=== PATIENT | male | born 1950 | race Caucasian/White ===

== ENCOUNTER 2020-10-14 07:15 | Outpatient (REF) | payer MEDICARE, SELFPAY ==
[2020-10-14 08:01] LABS: MANUAL DIFF FLAG NO
[2020-10-14 08:04] LABS: Basophils Percent Auto 0.5 % (0-2); Eosinophils Absolute Auto 0.2 X10*3/uL (0.0-0.4); Eosinophils Percent Auto 3.6 % (0-4); Hemoglobin 14.9 g/dl (14.0-18.0); Imm Gran Abs Auto 0.02 X10*3/uL (0.00-0.03); Imm Gran Pct Auto 0.3 % (0.0-0.4); Lymphocytes Percent Auto 32.5 % (20-40); Mean Corpuscular HGB Conc 33.1 g/dl (31.0-36.0); Mean Corpuscular Hemoglobin 30.2 pg (27.0-33.0); Mean Corpuscular Volume 91.3 fL (80-98); Mean Platelet Volume 9.2 fL (9.4-12.4); Monocytes Absolute Auto 0.4 X10*3/uL (0.1-1.2); Monocytes Percent Auto 6.6 % (2-11); Neutrophils Absolute Auto 3.4 X10*3/uL (2.0-8.3); Neutrophils Percent Auto 56.5 % (45-73); Platelet Count 210 X10*3/uL (160-400); Red Blood Count 4.93 X10*6/uL (4.60-5.80); Red Cell Distribution Width 12.4 % (11.0-16.0)
[2020-10-14 08:24] LABS: Alanine Aminotransferase 34 U/L (0-40); Albumin Level 4.4 g/dL (3.5-5.0); Alkaline Phosphatase 85 U/L (39-117); Anion Gap 13 (12-20); Aspartate Amino Transferase 24 U/L (5-37); Bilirubin Total 0.4 mg/dL (0.0-1.0); Blood Urea Nitrogen 18 mg/dL (9-16); Calcium 9.3 mg/dL (8.4-10.2); Carbon Dioxide 32 mmol/L (22-29); Chloride 99 mmol/L (96-108); Cholesterol 264 mg/dL; Estimated Glomerular Filt Rate > 60; Glucose Fasting 160 mg/dL (60-99); HDL Cholesterol 51 mg/dL; LDL Cholesterol Calculated 183 mg/dl; Potassium 4.5 mmol/l (3.3-5.1); Sodium 139 mmol/L (135-145); Total Protein 6.9 g/dL (6.5-8.0); Triglycerides 153 mg/dL
[2020-10-14 08:47] LABS: Vitamin D 25-OH Total 87.3 ng/mL (>30)
== END 2020-10-14 07:16 | disposition home or self-care (01) ==
LOC: HO.LAB 07:15
PROVIDERS: PCP Internal Medicine Medical Oncology; Visit Provider Internal Medicine Medical Oncology
DX: E78.5 Hyperlipidemia, unspecified (principal); E66.3 Overweight
CPT/HCPCS: 36415; 80053; 80061; 82306; 85025

== ENCOUNTER 2021-01-09 06:31 | Outpatient (REF) | payer MEDICARE, SELFPAY ==
[2021-01-09 07:01] LABS: MANUAL DIFF FLAG NO
[2021-01-09 07:07] LABS: Basophils Percent Auto 0.5 % (0-2); Eosinophils Absolute Auto 0.2 X10*3/uL (0.0-0.4); Eosinophils Percent Auto 3.3 % (0-4); Hematocrit 43.8 % (42-52); Hemoglobin 14.6 g/dl (14.0-18.0); Imm Gran Abs Auto 0.01 X10*3/uL (0.00-0.03); Imm Gran Pct Auto 0.2 % (0.0-0.4); Lymphocytes Absolute Auto 2.3 X10*3/uL (1.2-4.9); Lymphocytes Percent Auto 37.8 % (20-40); Mean Corpuscular HGB Conc 33.3 g/dl (31.0-36.0); Mean Corpuscular Hemoglobin 30.9 pg (27.0-33.0); Mean Corpuscular Volume 92.8 fL (80-98); Mean Platelet Volume 9.3 fL (9.4-12.4); Monocytes Absolute Auto 0.3 X10*3/uL (0.1-1.2); Monocytes Percent Auto 5.4 % (2-11); Neutrophils Absolute Auto 3.2 X10*3/uL (2.0-8.3); Neutrophils Percent Auto 52.8 % (45-73); Platelet Count 196 X10*3/uL (160-400); Red Blood Count 4.72 X10*6/uL (4.60-5.80); Red Cell Distribution Width 12.9 % (11.0-16.0); White Blood Count 6.1 X10*3/uL (4.8-10.8)
[2021-01-09 07:15] LABS: Estimated Average Glucose 131 mg/dL; Hemoglobin A1c % 6.2 %
[2021-01-09 07:23] LABS: Alanine Aminotransferase 24 U/L (0-40); Albumin Level 4.4 g/dL (3.5-5.0); Alkaline Phosphatase 78 U/L (39-117); Anion Gap 14 (12-20); Aspartate Amino Transferase 23 U/L (5-37); Bilirubin Total 0.7 mg/dL (0.0-1.0); Blood Urea Nitrogen 21 mg/dL (9-16); Calcium 9.3 mg/dL (8.4-10.2); Carbon Dioxide 30 mmol/L (22-29); Chloride 101 mmol/L (96-108); Cholesterol 242 mg/dL; Estimated Glomerular Filt Rate > 60; Glucose Fasting 127 mg/dL (60-99); HDL Cholesterol 55 mg/dL; LDL Cholesterol Calculated 157 mg/dl; Potassium 4.6 mmol/L (3.3-5.1); Sodium 140 mmol/L (135-145); Total Protein 6.8 g/dL (6.5-8.0); Triglycerides 153 mg/dL
[2021-01-09 07:54] LABS: Creatinine Urine 140.49 mg/dL; Microalbumin Urine < 5.0 mg/L
== END 2021-01-09 06:32 | disposition home or self-care (01) ==
LOC: HO.LAB 06:31
PROVIDERS: PCP Internal Medicine Medical Oncology; Visit Provider Internal Medicine Medical Oncology
DX: E78.5 Hyperlipidemia, unspecified (principal)
CPT/HCPCS: 36415; 80053; 80061; 82043; 83036; 85025

== ENCOUNTER 2021-07-09 06:38 | Outpatient (REF) | payer MEDICARE, SELFPAY ==
[2021-07-09 08:01] LABS: MANUAL DIFF FLAG NO
[2021-07-09 08:07] LABS: Basophils Percent Auto 0.4 % (0-2); Eosinophils Absolute Auto 0.3 X10*3/uL (0.0-0.4); Hematocrit 41.8 % (42-52); Hemoglobin 13.8 g/dl (14.0-18.0); Imm Gran Abs Auto 0.01 X10*3/uL (0.00-0.03); Imm Gran Pct Auto 0.1 % (0.0-0.4); Lymphocytes Absolute Auto 2.1 X10*3/uL (1.2-4.9); Lymphocytes Percent Auto 30.6 % (20-40); Mean Corpuscular Hemoglobin 30.9 pg (27.0-33.0); Mean Corpuscular Volume 93.7 fL (80-98); Mean Platelet Volume 9.5 fL (9.4-12.4); Monocytes Absolute Auto 0.4 X10*3/uL (0.1-1.2); Monocytes Percent Auto 5.8 % (2-11); Neutrophils Percent Auto 59.1 % (45-73); Platelet Count 205 X10*3/uL (160-400); Red Blood Count 4.46 X10*6/uL (4.60-5.80); Red Cell Distribution Width 12.8 % (11.0-16.0); White Blood Count 6.8 X10*3/uL (4.8-10.8)
[2021-07-09 08:35] LABS: Alanine Aminotransferase 26 U/L (0-40); Albumin Level 4.3 g/dL (3.5-5.0); Alkaline Phosphatase 73 U/L (39-117); Anion Gap 14 (12-20); Aspartate Amino Transferase 29 U/L (5-37); Bilirubin Total 0.6 mg/dL (0.0-1.0); Blood Urea Nitrogen 21 mg/dL (9-16); Calcium 9.2 mg/dL (8.4-10.2); Carbon Dioxide 28 mmol/L (22-29); Chloride 102 mmol/L (96-108); Cholesterol 235 mg/dL; Estimated Glomerular Filt Rate > 60; Glucose Fasting 129 mg/dL (60-99); HDL Cholesterol 55 mg/dL; LDL Cholesterol Calculated 151 mg/dl; Potassium 4.5 mmol/L (3.3-5.1); Sodium 139 mmol/L (135-145); Total Protein 6.6 g/dL (6.5-8.0); Triglycerides 145 mg/dL
[2021-07-09 09:06] LABS: Estimated Average Glucose 131 mg/dL; Hemoglobin A1C 152.6947 umol/L; Hemoglobin A1c % 6.2 %
== END 2021-07-09 06:39 | disposition home or self-care (01) ==
LOC: HO.LAB 06:38
PROVIDERS: PCP Internal Medicine Medical Oncology; Visit Provider Internal Medicine Medical Oncology
DX: E78.5 Hyperlipidemia, unspecified (principal); E66.3 Overweight
CPT/HCPCS: 36415; 80053; 80061; 83036; 85025

== ENCOUNTER 2022-01-11 06:16 | Outpatient (REF) | payer MEDICARE, SELFPAY ==
[2022-01-11 06:56] LABS: Hematocrit 41.2 % (42.0-52.0); Hemoglobin 14.3 g/dl (14.0-18.0); Mean Corpuscular HGB Conc 34.7 g/dl (31.0-36.0); Mean Corpuscular Hemoglobin 32.6 pg (27.0-33.0); Mean Corpuscular Volume 93.8 fL (80.0-98.0); Mean Platelet Volume 9.5 fL (9.4-12.4); Platelet Count 192 X10*3/uL (160-400); Red Blood Count 4.39 X10*6/uL (4.60-5.80); Red Cell Distribution Width 12.7 % (11.0-16.0); White Blood Count 6.8 X10*3/uL (4.8-10.8)
[2022-01-11 07:09] LABS: Alanine Aminotransferase 45 U/L (0-40); Albumin Level 4.5 g/dL (3.5-5.0); Alkaline Phosphatase 86 U/L (39-117); Anion Gap 13 (12-20); Aspartate Amino Transferase 31 U/L (5-37); Bilirubin Total 0.5 mg/dL (0.0-1.0); Blood Urea Nitrogen 21 mg/dL (9-16); Calcium 9.6 mg/dL (8.4-10.2); Carbon Dioxide 31 mmol/L (22-29); Chloride 99 mmol/L (96-108); Cholesterol 293 mg/dL; Estimated Glomerular Filt Rate > 60; Glucose Fasting 183 mg/dL (60-99); HDL Cholesterol 52 mg/dL; LDL Cholesterol Calculated 198 mg/dl; Potassium 4.6 mmol/L (3.3-5.1); Sodium 138 mmol/L (135-145); Total Protein 7.2 g/dL (6.5-8.0); Triglycerides 217 mg/dL
[2022-01-11 07:26] LABS: Estimated Average Glucose 154 mg/dL
[2022-01-11 08:18] LABS: Microalbumin Urine < 5.0 mg/L
== END 2022-01-11 06:17 | disposition home or self-care (01) ==
LOC: HO.LAB 06:16
PROVIDERS: PCP Internal Medicine Medical Oncology; Visit Provider Internal Medicine Medical Oncology
DX: E78.5 Hyperlipidemia, unspecified (principal); N40.2 Nodular prostate without lower urinary tract symptoms; E11.39 Type 2 diabetes mellitus with other diabetic ophthalmic complication
CPT/HCPCS: 36415; 80053; 80061; 82043; 83036; 85027

== ENCOUNTER 2022-03-13 06:03 | Outpatient (REF) | payer MEDICARE, SELFPAY ==
[2022-03-13 06:29] LABS: MANUAL DIFF FLAG NO
[2022-03-13 07:16] LABS: Basophils Percent Auto 0.5 % (0-2); Eosinophils Absolute Auto 0.3 X10*3/uL (0.0-0.4); Eosinophils Percent Auto 3.6 % (0-4); Hematocrit 40.9 % (42.0-52.0); Hemoglobin 13.4 g/dl (14.0-18.0); Imm Gran Abs Auto 0.02 X10*3/uL (0.00-0.03); Imm Gran Pct Auto 0.3 % (0.0-0.4); Lymphocytes Absolute Auto 2.1 X10*3/uL (1.2-4.9); Lymphocytes Percent Auto 28.7 % (20-40); Mean Corpuscular HGB Conc 32.8 g/dl (31.0-36.0); Mean Corpuscular Hemoglobin 30.3 pg (27.0-33.0); Mean Corpuscular Volume 92.5 fL (80.0-98.0); Mean Platelet Volume 9.4 fL (9.4-12.4); Monocytes Absolute Auto 0.4 X10*3/uL (0.1-1.2); Monocytes Percent Auto 5.1 % (2-11); Neutrophils Absolute Auto 4.5 x10*3/uL (2.0-8.3); Neutrophils Percent Auto 61.8 % (45-73); Platelet Count 234 X10*3/uL (160-400); Red Blood Count 4.42 X10*6/uL (4.60-5.80); Red Cell Distribution Width 12.7 % (11.0-16.0); White Blood Count 7.3 X10*3/uL (4.8-10.8)
[2022-03-13 07:44] LABS: Estimated Average Glucose 154 mg/dL
[2022-03-13 08:34] LABS: Alanine Aminotransferase 28 U/L (0-40); Albumin Level 4.2 g/dL (3.5-5.0); Alkaline Phosphatase 82 U/L (39-117); Anion Gap 14 (12-20); Aspartate Amino Transferase 22 U/L (5-37); Bilirubin Total 0.3 mg/dL (0.0-1.0); Blood Urea Nitrogen 17 mg/dL (9-16); Calcium 9.3 mg/dL (8.4-10.2); Carbon Dioxide 28 mmol/L (22-29); Chloride 101 mmol/L (96-108); Cholesterol 281 mg/dL; Estimated Glomerular Filt Rate > 60; Glucose Fasting 168 mg/dL (60-99); HDL Cholesterol 49 mg/dL; LDL Cholesterol Calculated 203 mg/dl; Potassium 4.6 mmol/L (3.3-5.1); Sodium 138 mmol/L (135-145); Total Protein 6.6 g/dL (6.5-8.0); Triglycerides 149 mg/dL
== END 2022-03-13 06:04 | disposition home or self-care (01) ==
LOC: HO.LAB 06:03
PROVIDERS: PCP Internal Medicine Medical Oncology; Visit Provider Internal Medicine Medical Oncology
DX: E78.5 Hyperlipidemia, unspecified (principal); E11.39 Type 2 diabetes mellitus with other diabetic ophthalmic complication; N40.2 Nodular prostate without lower urinary tract symptoms
CPT/HCPCS: 36415; 80053; 80061; 83036; 85025

== ENCOUNTER 2022-07-20 07:04 | Outpatient (REF) | payer MEDICARE, SELFPAY ==
[2022-07-20 07:26] LABS: MANUAL DIFF FLAG NO
[2022-07-20 08:25] LABS: Basophils Absolute Auto 0.1 X10*3/uL (0.0-0.2); Basophils Percent Auto 0.7 % (0-2); Eosinophils Absolute Auto 0.3 X10*3/uL (0.0-0.4); Hematocrit 44.4 % (42.0-52.0); Hemoglobin 14.6 g/dl (14.0-18.0); Imm Gran Abs Auto 0.03 X10*3/uL (0.00-0.03); Imm Gran Pct Auto 0.4 % (0.0-0.4); Lymphocytes Absolute Auto 2.1 X10*3/uL (1.2-4.9); Lymphocytes Percent Auto 29.5 % (20-40); Mean Corpuscular HGB Conc 32.9 g/dl (31.0-36.0); Mean Corpuscular Hemoglobin 30.9 pg (27.0-33.0); Mean Corpuscular Volume 94.1 fL (80.0-98.0); Mean Platelet Volume 9.5 fL (9.4-12.4); Monocytes Absolute Auto 0.4 X10*3/uL (0.1-1.2); Monocytes Percent Auto 5.5 % (2-11); Neutrophils Absolute Auto 4.2 x10*3/uL (2.0-8.3); Neutrophils Percent Auto 59.9 % (45-73); Platelet Count 225 X10*3/uL (160-400); Red Blood Count 4.72 X10*6/uL (4.60-5.80); Red Cell Distribution Width 12.4 % (11.0-16.0); White Blood Count 7.1 X10*3/uL (4.8-10.8)
[2022-07-20 09:21] LABS: Estimated Average Glucose 146 mg/dL; Hemoglobin A1c % 6.7 %
[2022-07-20 09:26] LABS: Alanine Aminotransferase 30 U/L (0-40); Albumin Level 4.4 g/dL (3.5-5.0); Alkaline Phosphatase 92 U/L (39-117); Anion Gap 19 (12-20); Aspartate Amino Transferase 22 U/L (5-37); Bilirubin Total 0.5 mg/dL (0.0-1.0); Blood Urea Nitrogen 21 mg/dL (9-16); Calcium 9.4 mg/dL (8.4-10.2); Carbon Dioxide 26 mmol/L (22-29); Chloride 101 mmol/L (96-108); Cholesterol 291 mg/dL; Estimated Glomerular Filt Rate > 60; Glucose Random 156 mg/dL (60-115); HDL Cholesterol 52 mg/dL; LDL Cholesterol Calculated 194 mg/dl; Potassium 4.8 mmol/L (3.3-5.1); Sodium 141 mmol/L (135-145); Total Protein 6.9 g/dL (6.5-8.0); Triglycerides 229 mg/dL
== END 2022-07-20 07:05 | disposition home or self-care (01) ==
LOC: HO.LAB 07:04
PROVIDERS: Visit Provider Internal Medicine Medical Oncology
DX: E78.5 Hyperlipidemia, unspecified (principal); N40.2 Nodular prostate without lower urinary tract symptoms
CPT/HCPCS: 36415; 80053; 80061; 83036; 85025

== ENCOUNTER 2023-01-18 06:50 | Outpatient (REF) | payer MEDICARE, SELFPAY ==
[2023-01-18 07:05] LABS: MANUAL DIFF FLAG NO
[2023-01-18 07:33] LABS: Basophils Absolute Auto 0.1 X10*3/uL (0.0-0.2); Basophils Percent Auto 0.7 % (0-2); Eosinophils Absolute Auto 0.4 X10*3/uL (0.0-0.4); Eosinophils Percent Auto 4.6 % (0-4); Hematocrit 43.5 % (42.0-52.0); Hemoglobin 14.4 g/dl (14.0-18.0); Imm Gran Abs Auto 0.03 X10*3/uL (0.00-0.03); Imm Gran Pct Auto 0.4 % (0.0-0.4); Lymphocytes Absolute Auto 2.5 X10*3/uL (1.2-4.9); Lymphocytes Percent Auto 30.7 % (20-40); Mean Corpuscular HGB Conc 33.1 g/dl (31.0-36.0); Mean Corpuscular Hemoglobin 30.4 pg (27.0-33.0); Mean Corpuscular Volume 91.8 fL (80.0-98.0); Mean Platelet Volume 9.1 fL (9.4-12.4); Monocytes Absolute Auto 0.5 X10*3/uL (0.1-1.2); Monocytes Percent Auto 6.1 % (2-11); Neutrophils Absolute Auto 4.7 x10*3/uL (2.0-8.3); Neutrophils Percent Auto 57.5 % (45-73); Platelet Count 221 X10*3/uL (160-400); Red Blood Count 4.74 X10*6/uL (4.60-5.80); Red Cell Distribution Width 12.4 % (11.0-16.0); White Blood Count 8.2 X10*3/uL (4.8-10.8)
[2023-01-18 09:05] LABS: Alanine Aminotransferase 28 U/L (0-40); Albumin Level 4.3 g/dL (3.5-5.0); Alkaline Phosphatase 86 U/L (39-117); Anion Gap 15 (12-20); Aspartate Amino Transferase 22 U/L (5-37); Bilirubin Total 0.4 mg/dL (0.0-1.0); Blood Urea Nitrogen 22 mg/dL (9-16); Calcium 9.2 mg/dL (8.4-10.2); Carbon Dioxide 27 mmol/L (22-29); Chloride 102 mmol/L (96-108); Cholesterol 287 mg/dL; Estimated Glomerular Filt Rate > 60; Glucose Random 178 mg/dL (60-115); HDL Cholesterol 52 mg/dL; LDL Cholesterol Calculated 201 mg/dl; Potassium 4.8 mmol/L (3.3-5.1); Sodium 139 mmol/L (135-145); Total Protein 6.6 g/dL (6.5-8.0); Triglycerides 172 mg/dL
== END 2023-01-18 06:51 | disposition home or self-care (01) ==
LOC: HO.LAB 06:50
PROVIDERS: PCP Internal Medicine Medical Oncology; Visit Provider Internal Medicine Medical Oncology
DX: Z00.00 Encounter for general adult medical examination without abnormal findings (principal); E78.5 Hyperlipidemia, unspecified
CPT/HCPCS: 36415; 80053; 80061; 85025

== ENCOUNTER 2023-04-14 06:34 | Outpatient (REF) | payer MEDICARE, SELFPAY | END 2023-04-14 06:35 | disposition home or self-care (01) | LOC: HO.LAB 06:34 | PROVIDERS: PCP Internal Medicine Medical Oncology; Visit Provider Internal Medicine Medical Oncology | DX: Z12.5 Encounter for screening for malignant neoplasm of prostate (principal); E78.5 Hyperlipidemia, unspecified; E11.39 Type 2 diabetes mellitus with other diabetic ophthalmic complication; E66.3 Overweight; N40.2 Nodular prostate without lower urinary tract symptoms | CPT/HCPCS: 36415; 80053; 80061; 82043; 83036; 84153; 85025 ==

== ENCOUNTER 2023-07-22 06:31 | Outpatient (REF) | payer MEDICARE, SELFPAY | END 2023-07-22 06:32 | disposition home or self-care (01) | LOC: HO.LAB 06:31 | PROVIDERS: PCP Internal Medicine Medical Oncology; Visit Provider Internal Medicine Medical Oncology | DX: E78.5 Hyperlipidemia, unspecified (principal); E11.39 Type 2 diabetes mellitus with other diabetic ophthalmic complication; E66.3 Overweight | CPT/HCPCS: 36415; 80053; 80061; 83036; 85025 ==

== ENCOUNTER 2023-10-17 07:48 | Outpatient (REF) | payer MEDICARE, SELFPAY | END 2023-10-17 07:49 | disposition home or self-care (01) | LOC: HO.LAB 07:48 | PROVIDERS: PCP Internal Medicine Medical Oncology; Visit Provider Internal Medicine Medical Oncology | DX: Z00.00 Encounter for general adult medical examination without abnormal findings (principal); E11.39 Type 2 diabetes mellitus with other diabetic ophthalmic complication; N52.9 Male erectile dysfunction, unspecified; E66.3 Overweight; Z12.5 Encounter for screening for malignant neoplasm of prostate | CPT/HCPCS: 36415; 80053; 80061; 83036; 84153; 85025 ==

== ENCOUNTER 2024-03-01 06:05 | Outpatient (REF) | payer MEDICARE, SELFPAY ==
[2024-03-01 06:22] LABS: MANUAL DIFF FLAG NO
[2024-03-01 07:43] LABS: Basophils Percent Auto 0.6 % (0-2); Eosinophils Absolute Auto 0.3 X10*3/uL (0.0-0.4); Hematocrit 40.7 % (42.0-52.0); Hemoglobin 13.7 g/dl (14.0-18.0); Imm Gran Abs Auto 0.01 X10*3/uL (0.00-0.03); Imm Gran Pct Auto 0.1 % (0.0-0.4); Lymphocytes Absolute Auto 2.2 X10*3/uL (1.2-4.9); Lymphocytes Percent Auto 32.4 % (20-40); Mean Corpuscular HGB Conc 33.7 g/dl (31.0-36.0); Mean Corpuscular Hemoglobin 30.7 pg (27.0-33.0); Mean Corpuscular Volume 91.3 fL (80.0-98.0); Mean Platelet Volume 9.8 fL (9.4-12.4); Monocytes Absolute Auto 0.4 X10*3/uL (0.1-1.2); Monocytes Percent Auto 5.7 % (2-11); Neutrophils Absolute Auto 3.8 x10*3/uL (2.0-8.3); Neutrophils Percent Auto 56.2 % (45-73); Platelet Count 245 X10*3/uL (160-400); Red Blood Count 4.46 X10*6/uL (4.60-5.80); Red Cell Distribution Width 12.8 % (11.0-16.0); White Blood Count 6.8 X10*3/uL (4.8-10.8)
[2024-03-01 07:50] LABS: Estimated Average Glucose 183 mg/dL
[2024-03-01 08:16] LABS: Creatinine Urine 109.67 mg/dL; Microalbum/Creatinine Ratio Ur 5.4 ug/mg cr (<30)
[2024-03-01 08:19] LABS: Alanine Aminotransferase 23 U/L (0-40); Albumin Level 4.2 g/dL (3.5-5.0); Alkaline Phosphatase 82 U/L (39-117); Anion Gap 17 (12-20); Aspartate Amino Transferase 20 U/L (5-37); Bilirubin Total 0.3 mg/dL (0.0-1.0); Blood Urea Nitrogen 24 mg/dL (9-16); Calcium 9.5 mg/dL (8.4-10.2); Carbon Dioxide 26 mmol/L (22-29); Chloride 102 mmol/L (96-108); Cholesterol 257 mg/dL (<200); Estimated Glomerular Filt Rate 60; Glucose Fasting 184 mg/dL (60-99); HDL Cholesterol 47 mg/dL (>40); LDL Cholesterol Calculated 179 mg/dL (<100); Potassium 4.5 mmol/L (3.3-5.1); Sodium 140 mmol/L (135-145); Total Protein 6.9 g/dL (6.5-8.0); Triglycerides 158 mg/dL (<150)
[2024-03-01 08:35] LABS: Prostate Specific Antigen 2.15 ng/mL (<0.05-4.0)
== END 2024-03-01 06:06 | disposition home or self-care (01) ==
LOC: HO.LAB 06:05
PROVIDERS: PCP Internal Medicine Medical Oncology; Visit Provider Internal Medicine Medical Oncology
DX: E78.5 Hyperlipidemia, unspecified (principal); Z12.5 Encounter for screening for malignant neoplasm of prostate; E11.39 Type 2 diabetes mellitus with other diabetic ophthalmic complication; N40.2 Nodular prostate without lower urinary tract symptoms; E66.3 Overweight
CPT/HCPCS: 36415; 80053; 80061; 82043; 82570; 83036; 84153; 85025

== ENCOUNTER 2024-07-24 07:36 | Outpatient (REF) | payer MEDICARE, SELFPAY ==
[2024-07-24 08:05] LABS: MANUAL DIFF FLAG NO
[2024-07-24 08:54] LABS: Estimated Average Glucose 174 mg/dL; Hemoglobin A1C 202.7752 umol/L; Hemoglobin A1c % 7.7 % (<6.0); Total Hemoglobin (HGBA1C) 3329.4281 umol/L
[2024-07-24 09:01] LABS: Basophils Absolute Auto 0.1 X10*3/uL (0.0-0.2); Basophils Percent Auto 0.6 % (0-2); Eosinophils Absolute Auto 0.4 X10*3/uL (0.0-0.4); Eosinophils Percent Auto 4.8 % (0-4); Hematocrit 41.6 % (42.0-52.0); Hemoglobin 13.7 g/dl (14.0-18.0); Imm Gran Abs Auto 0.02 X10*3/uL (0.00-0.03); Imm Gran Pct Auto 0.3 % (0.0-0.4); Lymphocytes Absolute Auto 2.3 X10*3/uL (1.2-4.9); Lymphocytes Percent Auto 29.5 % (20-40); Mean Corpuscular HGB Conc 32.9 g/dl (31.0-36.0); Mean Corpuscular Hemoglobin 29.9 pg (27.0-33.0); Mean Corpuscular Volume 90.8 fL (80.0-98.0); Mean Platelet Volume 9.1 fL (9.4-12.4); Monocytes Absolute Auto 0.5 X10*3/uL (0.1-1.2); Neutrophils Absolute Auto 4.5 x10*3/uL (2.0-8.3); Neutrophils Percent Auto 58.8 % (45-73); Platelet Count 259 X10*3/uL (160-400); Red Blood Count 4.58 X10*6/uL (4.60-5.80); Red Cell Distribution Width 12.6 % (11.0-16.0); White Blood Count 7.7 X10*3/uL (4.8-10.8)
[2024-07-24 09:30] LABS: Alanine Aminotransferase 25 U/L (0-40); Albumin Level 4.2 g/dL (3.5-5.0); Alkaline Phosphatase 102 U/L (39-117); Anion Gap 14 (12-20); Aspartate Amino Transferase 20 U/L (5-37); Bilirubin Total 0.5 mg/dL (0.0-1.0); Blood Urea Nitrogen 16 mg/dL (9-16); Calcium 9.9 mg/dL (8.4-10.2); Carbon Dioxide 28 mmol/L (22-29); Chloride 102 mmol/L (96-108); Cholesterol 249 mg/dL (<200); Estimated Glomerular Filt Rate > 60; Glucose Fasting 171 mg/dL (60-99); HDL Cholesterol 46 mg/dL (>40); LDL Cholesterol Calculated 168 mg/dL (<100); Potassium 4.5 mmol/L (3.3-5.1); Sodium 139 mmol/L (135-145); Total Protein 7.1 g/dL (6.5-8.0); Triglycerides 176 mg/dL (<150)
[2024-07-24 12:00] LABS: Creatinine Urine 79.45 mg/dL; Microalbumin Urine < 5.0 mg/L
== END 2024-07-24 07:37 | disposition home or self-care (01) ==
LOC: HO.LAB 07:36
PROVIDERS: PCP Internal Medicine Medical Oncology; Visit Provider Internal Medicine Medical Oncology
DX: E11.39 Type 2 diabetes mellitus with other diabetic ophthalmic complication (principal); E78.5 Hyperlipidemia, unspecified; E66.3 Overweight
CPT/HCPCS: 36415; 80053; 80061; 82043; 82570; 83036; 85025

== ENCOUNTER 2024-11-26 06:52 | Outpatient (REF) | payer MEDICARE, SELFPAY ==
[2024-11-26 07:14] LABS: MANUAL DIFF FLAG NO
[2024-11-26 07:50] LABS: Estimated Average Glucose 200 mg/dL; Hemoglobin A1C 241.4741 umol/L; Hemoglobin A1c % 8.6 % (<6.0); Total Hemoglobin (HGBA1C) 3433.4082 umol/L
[2024-11-26 07:51] LABS: Basophils Absolute Auto 0.1 X10*3/uL (0.0-0.2); Basophils Percent Auto 0.6 % (0-2); Eosinophils Absolute Auto 0.3 X10*3/uL (0.0-0.4); Eosinophils Percent Auto 3.8 % (0-4); Hematocrit 40.8 % (42.0-52.0); Imm Gran Abs Auto 0.03 X10*3/uL (0.00-0.03); Imm Gran Pct Auto 0.4 % (0.0-0.4); Lymphocytes Absolute Auto 2.2 X10*3/uL (1.2-4.9); Lymphocytes Percent Auto 26.1 % (20-40); Mean Corpuscular HGB Conc 31.9 g/dl (31.0-36.0); Mean Corpuscular Hemoglobin 27.8 pg (27.0-33.0); Mean Corpuscular Volume 87.4 fL (80.0-98.0); Mean Platelet Volume 9.1 fL (9.4-12.4); Monocytes Absolute Auto 0.6 X10*3/uL (0.1-1.2); Monocytes Percent Auto 6.6 % (2-11); Neutrophils Absolute Auto 5.3 x10*3/uL (2.0-8.3); Neutrophils Percent Auto 62.5 % (45-73); Platelet Count 288 X10*3/uL (160-400); Red Blood Count 4.67 X10*6/uL (4.60-5.80); Red Cell Distribution Width 13.3 % (11.0-16.0); White Blood Count 8.5 X10*3/uL (4.8-10.8)
[2024-11-26 08:12] LABS: Alanine Aminotransferase 20 U/L (0-40); Albumin Level 4.1 g/dL (3.5-5.0); Alkaline Phosphatase 132 U/L (39-117); Anion Gap 14 (12-20); Aspartate Amino Transferase 19 U/L (5-37); Bilirubin Total 0.3 mg/dL (0.0-1.0); Blood Urea Nitrogen 17 mg/dL (9-16); Calcium 9.6 mg/dL (8.4-10.2); Carbon Dioxide 27 mmol/L (22-29); Chloride 98 mmol/L (96-108); Cholesterol 216 mg/dL (<200); Estimated Glomerular Filt Rate > 60; Glucose Fasting 196 mg/dL (60-99); HDL Cholesterol 44 mg/dL (>40); LDL Cholesterol Calculated 145 mg/dL (<100); Potassium 4.3 mmol/L (3.3-5.1); Sodium 135 mmol/L (135-145); Total Protein 7.6 g/dL (6.5-8.0); Triglycerides 138 mg/dL (<150)
== END 2024-11-26 06:53 | disposition home or self-care (01) ==
LOC: HO.LAB 06:52
PROVIDERS: PCP Internal Medicine Medical Oncology; Visit Provider Internal Medicine Medical Oncology
DX: Z00.00 Encounter for general adult medical examination without abnormal findings (principal); E11.39 Type 2 diabetes mellitus with other diabetic ophthalmic complication
CPT/HCPCS: 36415; 80053; 80061; 83036; 85025

== ENCOUNTER 2025-02-25 06:36 | Outpatient (REF) | payer MEDICARE, SELFPAY ==
--- OUTSIDE RECORDS SUMMARY | 2025-02-25 06:39 | XMS_ITS | Patient Health Record ---
Author Organization Kavon Drake III, MD Address [address] [place] [address] Care Team Providers Care Automation Control Technician Name Role Phone Kavon Drake Primary Care Provider [phone] Allergies Allergen (clinical drug ingredient) Drug/Non Drug Allergy documented on EMR Reaction Allergy Type Onset Date Status No Known Drug Allergy Unknown Drug Allergy Active Results Component Value Reference Range Notes Complete Blood Count Auto Di ff Reviewed date:03/06/2024 04:44:06 AM Interpretation: Performing Lab:[facility], [address] [place] [address] Notes/Report: White Blood Count 6.8 4.8-10.8 X10*3/uL Red Blood Count 4.46 4.60-5.80 X10*6/uL Hemoglobin 13.7 14.0-18.0 g/dl Hematocrit 40.7 42.0-52.0 % Mean Corpuscular Volume 91.3 80.0-98.0 fL Mean Corpuscular Hemoglobin 30.7 27.0-33.0 pg Mean Corpuscular HGB Conc 33.7 31.0-36.0 g/dl Red Cell Distribution Width 12.8 11.0-16.0 % Platelet Count 245 160-400 X10*3/uL Mean Platelet Volume 9.8 9.4-12.4 fL Neutrophils Percent Auto 56.2 45-73 % Imm Gran Pct Auto 0.1 0.0-0.4 % Lymphocytes Percent Auto 32.4 20-40 % Monocytes Percent Auto 5.7 2-11 % Eosinophils Percent Auto 5.0 0-4 % Basophils Percent Auto 0.6 0-2 % NRBC Pct Auto 0.0 0.0-0.2 /100WBC Neutrophils Absolute Auto 3.8 2.0-8.3 x10*3/u L Imm Gran Abs Auto 0.01 0.00-0.03 X10*3/uL Lymphocytes Absolute Auto 2.2 1.2-4.9 X10*3/u L Monocytes Absolute Auto 0.4 0.1-1.2 X10*3/uL Eosinophils Absolute Auto 0.3 0.0-0.4 X10*3/u L Basophils Absolute Auto 0.0 0.0-0.2 X10*3/uL NRBC Abs Auto 0.000 0.0-0.012 X10*3/uL Comprehensive [place]. Panel Fa st Reviewed date:03/06/2024 04:44:06 AM Interpretation: Performing Lab:[address] [phone] Notes/Report: Sodium 140 135-145 mmol/L Potassium 4.5 3.3-5.1 mmol/L Chloride 102 96-108 mmol/L Carbon Dioxide 26 22-29 mmol/L Anion Gap 17 12-20 Blood Urea Nitrogen 24 9-16 mg/dL Creatinine 1.20 0.5-1.4 mg/dL Estimated Glomerular Filt Rate 60 NOTE: For -[place] individuals, multiply the result by 1.210. Chronic Kidney Disease: Estimated GFR < 60 mL/min/1.73m2 Severe Kidney Disease: Estimated GFR < 15 mL/min/1.73m2 Glucose Fasting 184 60-99 mg/dL A fasting glucose of 126 mg/dl or greater on more than one occasion is considered diagnostic of diabetes. Calcium 9.5 8.4-10.2 mg/dL Bilirubin Total 0.3 0.0-1.0 mg/dL Aspartate Amino Transferase 20 5-37 U/L Alanine Aminotransferase 23 0-40 U/L Total Protein 6.9 6.5-8.0 g/dL Albumin Level 4.2 3.5-5.0 g/dL Alkaline Phosphatase 82 39-117 U/L Lipid Panel Reviewed date:03/06/2024 04:44:06 AM Interpretation: Performing Lab:[address] [address] Notes/Report: Triglycerides 158 <150 mg/dL Desirable Triglyceride: less than 150 mg/dL Borderline High Triglyceride 150-199 mg/dL High Triglyceride: 200-499 mg/dL Very High Triglyceride: greater than or equal to 5OO mg/dL Cholesterol 257 <200 mg/dL Desirable Cholesterol: less than 200 mg/dL Borderline High Cholesterol: 200-239 mg/dL High Cholesterol: greater than 239 mg/dL LDL Cholesterol Calculated 179 <100 mg/dL Desirable LDL: less than 100 mg/dL Near Optimal/Above Optimal LDL: 110-129 mg/dL Borderline High LDL: 130-159 mg/dL High LDL: 160-189 mg/dL Very High LDL: greater than or equal to 190 mg/dL HDL Cholesterol 47 >40 mg/dL Desirable HDL: greater than 40 mg/dL Note: This HDL assay may give artificially low results in patients with liver disease. Prostate Specific Antigen Reviewed date:03/06/2024 04:44:06 AM Interpretation: Performing Lab:[address] [address] Notes/Report: Prostate Specific Antigen 2.15 <0.05-4.0 ng/mL PSA methodology: Pizarro Alinity i Chemiluminescent Microparticle Immunoassay (CMIA) Microalbumin, Random Reviewed date:03/06/2024 04:44:06 AM Interpretation: Performing Lab:[facility], [address] [place] [phone] Notes/Report: Creatinine Urine 109.67 Microalbumin Urine 6.0 Microalbum/Creatinine Ratio Ur 5.4 <30 ug/mg cr Albumin/Creatinine Ratio Reference Ranges: Normal: < 30 ug/mg creatinine Microalbuminuria: 30 - 300 ug/mg creatinine Clinical Albuminuria: > 300 ug/mg creatinine Hemoglobin A1c Reviewed date:03/06/2024 04:44:06 AM Interpretation: Performing Lab:[address] [address] Notes/Report: Hemoglobin A1c % 8.0 <6.0 % Hemoglobin A1C Reference Range Adults: 4.8 - 6.0 % Non diabetic: < 6.0 % Goal: < 7.0 % Additional Action Suggested: > 8.0 % Note: Hemoglobin A1c results are invalid for patients with abnormal amounts of HbF. Blood transfusions may impact the HbA1c concentration in the patient sample. Estimated Average Glucose 183 eAG = Estimated average glucose which is %A1C expressed as average glucose, using the formula of the M4P-Wctmgku Average Glucose study (ADAG), Diabetes Care, Vol.31,#8, May. 2007 Complete Blood Count Auto Di ff Reviewed date:07/26/2024 07:02:27 AM Interpretation: Performing Lab:[facility], [address] [place] [phone] Notes/Report: White Blood Count 7.7 4.8-10.8 X10*3/uL Red Blood Count 4.58 4.60-5.80 X10*6/uL Hemoglobin 13.7 14.0-18.0 g/dl Hematocrit 41.6 42.0-52.0 % Mean Corpuscular Volume 90.8 80.0-98.0 fL Mean Corpuscular Hemoglobin 29.9 27.0-33.0 pg Mean Corpuscular HGB Conc 32.9 31.0-36.0 g/dl Red Cell Distribution Width 12.6 11.0-16.0 % Platelet Count 259 160-400 X10*3/uL Mean Platelet Volume 9.1 9.4-12.4 fL Neutrophils Percent Auto 58.8 45-73 % Imm Gran Pct Auto 0.3 0.0-0.4 % Lymphocytes Percent Auto 29.5 20-40 % Monocytes Percent Auto 6.0 2-11 % Eosinophils Percent Auto 4.8 0-4 % Basophils Percent Auto 0.6 0-2 % NRBC Pct Auto 0.0 0.0-0.2 /100WBC Neutrophils Absolute Auto 4.5 2.0-8.3 x10*3/u L Imm Gran Abs Auto 0.02 0.00-0.03 X10*3/uL Lymphocytes Absolute Auto 2.3 1.2-4.9 X10*3/u L Monocytes Absolute Auto 0.5 0.1-1.2 X10*3/uL Eosinophils Absolute Auto 0.4 0.0-0.4 X10*3/u L Basophils Absolute Auto 0.1 0.0-0.2 X10*3/uL NRBC Abs Auto 0.000 0.0-0.012 X10*3/uL Comprehensive [place]. Panel Fa st Reviewed date:07/26/2024 07:02:27 AM Interpretation: Performing Lab:[facility], [address] [place] [phone] Notes/Report: Sodium 139 135-145 mmol/L Potassium 4.5 3.3-5.1 mmol/L Chloride 102 96-108 mmol/L Carbon Dioxide 28 22-29 mmol/L Anion Gap 14 12-20 Blood Urea Nitrogen 16 9-16 mg/dL Creatinine 1.05 0.5-1.4 mg/dL Estimated Glomerular Filt Rate > 60 NOTE: For -[place] individuals, multiply the result by 1.210. Chronic Kidney Disease: Estimated GFR < 60 mL/min/1.73m2 Severe Kidney Disease: Estimated GFR < 15 mL/min/1.73m2 Glucose Fasting 171 60-99 mg/dL A fasting glucose of 126 mg/dl or greater on more than one occasion is considered diagnostic of diabetes. Calcium 9.9 8.4-10.2 mg/dL Bilirubin Total 0.5 0.0-1.0 mg/dL Aspartate Amino Transferase 20 5-37 U/L Alanine Aminotransferase 25 0-40 U/L Total Protein 7.1 6.5-8.0 g/dL Albumin Level 4.2 3.5-5.0 g/dL Alkaline Phosphatase 102 39-117 U/L Lipid Panel Reviewed date:07/26/2024 07:02:27 AM Interpretation: Performing Lab:[facility], [address] [place] [phone] Notes/Report: Triglycerides 176 <150 mg/dL Desirable Triglyceride: less than 150 mg/dL Borderline High Triglyceride 150-199 mg/dL High Triglyceride: 200-499 mg/dL Very High Triglyceride: greater than or equal to 5OO mg/dL Cholesterol 249 <200 mg/dL Desirable Cholesterol: less than 200 mg/dL Borderline High Cholesterol: 200-239 mg/dL High Cholesterol: greater than 239 mg/dL LDL Cholesterol Calculated 168 <100 mg/dL Desirable LDL: less than 100 mg/dL Near Optimal/Above Optimal LDL: 110-129 mg/dL Borderline High LDL: 130-159 mg/dL High LDL: 160-189 mg/dL Very High LDL: greater than or equal to 190 mg/dL HDL Cholesterol 46 >40 mg/dL Desirable HDL: greater than 40 mg/dL Note: This HDL assay may give artificially low results in patients with liver disease. Microalbumin, Random Reviewed date:07/26/2024 07:02:27 AM Interpretation: Performing Lab:[facility], [address] [place] [phone] Notes/Report: Creatinine Urine 79.45 Microalbumin Urine < 5.0 Microalbum/Creatinine Ratio Ur TNP <30 ug/mg cr Unable to calculate albumin/creatinine ratio due to low microalbumin or creatinine result. Hemoglobin A1c Reviewed date:07/26/2024 07:02:27 AM Interpretation: Performing Lab:[facility], [address] [place] [phone] Notes/Report: Hemoglobin A1c % 7.7 <6.0 % Hemoglobin A1C Reference Range Adults: 4.8 - 6.0 % Non diabetic: < 6.0 % Goal: < 7.0 % Additional Action Suggested: > 8.0 % Note: Hemoglobin A1c results are invalid for patients with abnormal amounts of HbF. Blood transfusions may impact the HbA1c concentration in the patient sample. Estimated Average Glucose 174 eAG = Estimated average glucose which is %A1C expressed as average glucose, using the formula of the P1C-Opmlmds Average Glucose study (ADAG), Diabetes Care, Vol.31,#8, May. 2007 Complete Blood Count Auto Di ff Reviewed date:11/30/2024 03:26:57 PM Interpretation: Performing Lab:[facility], [address] [place] [phone] Notes/Report: White Blood Count 8.5 4.8-10.8 X10*3/uL Red Blood Count 4.67 4.60-5.80 X10*6/uL Hemoglobin 13.0 14.0-18.0 g/dl Hematocrit 40.8 42.0-52.0 % Mean Corpuscular Volume 87.4 80.0-98.0 fL Mean Corpuscular Hemoglobin 27.8 27.0-33.0 pg Mean Corpuscular HGB Conc 31.9 31.0-36.0 g/dl Red Cell Distribution Width 13.3 11.0-16.0 % Platelet Count 288 160-400 X10*3/uL Mean Platelet Volume 9.1 9.4-12.4 fL Neutrophils Percent Auto 62.5 45-73 % Imm Gran Pct Auto 0.4 0.0-0.4 % Lymphocytes Percent Auto 26.1 20-40 % Monocytes Percent Auto 6.6 2-11 % Eosinophils Percent Auto 3.8 0-4 % Basophils Percent Auto 0.6 0-2 % NRBC Pct Auto 0.0 0.0-0.2 /100WBC Neutrophils Absolute Auto 5.3 2.0-8.3 x10*3/u L Imm Gran Abs Auto 0.03 0.00-0.03 X10*3/uL Lymphocytes Absolute Auto 2.2 1.2-4.9 X10*3/u L Monocytes Absolute Auto 0.6 0.1-1.2 X10*3/uL Eosinophils Absolute Auto 0.3 0.0-0.4 X10*3/u L Basophils Absolute Auto 0.1 0.0-0.2 X10*3/uL NRBC Abs Auto 0.000 0.0-0.012 X10*3/uL Hemoglobin A1c Reviewed date:11/30/2024 03:26:57 PM Interpretation: Performing Lab:[facility], [address] [place] [phone] Notes/Report: Hemoglobin A1c % 8.6 <6.0 % Hemoglobin A1C Reference Range Adults: 4.8 - 6.0 % Non diabetic: < 6.0 % Goal: < 7.0 % Additional Action Suggested: > 8.0 % Note: Hemoglobin A1c results are invalid for patients with abnormal amounts of HbF. Blood transfusions may impact the HbA1c concentration in the patient sample. Estimated Average Glucose 200 eAG = Estimated average glucose which is %A1C expressed as average glucose, using the formula of the S7Y-Ehwommo Average Glucose study (ADAG), Diabetes Care, Vol.31,#8, May. 2007 Reason For Referral No Information Medications Medication SIG (Take, Route, Fr equency, Duration) Notes Start Date End Date Status glipiZIDE ER 5 MG 1 tablet Orally Once a day for 30 days 11/30/2024 Active metFORMIN HCl 1000 MG TAKE ONE TABLET BY MOUTH TWICE A DAY Active Niacin 500 MG 1 tablet with food O rally Once a day Active Fish Oil 1200 MG 1 capsule Orally Once a day Active Hydrocortisone 1 % 1 application Classer ally Twice a day 07/22/2023 Active Immunizations Vaccine Route Administration Date Status Comme nts Influenza no Preserv 3 and > Unknown 08/05/2019 Administered PCV13 Unknown 08/05/2019 Administered Influenza no Preserv 3 and > Unknown 07/28/2020 Administered COVID- 19 Vaccine Unknown 10/14/2021 Administered COVID- 19 Vaccine Unknown 01/17/2021 Administered Influenza, quad IM Intramuscular 07/24/2022 Administered Social History Tobacco Use: Social History Observation Description Date Details (start date - stop date) Never Smoker NA - NA Sex Assigned At : Social History Observation Description Sex Assigned At Male Tobacco Use/Smoking Question Answer Notes Patient is a nonsmoker Additional Findings: Tobacco Non-User Aggressive non-smoker Tobacco Control (Standard) Question Answer Notes Tobacco use: Nonsmoker Additional Findings: Tobacco non-user Aggressive nonsmoker AUDIT-C (Standard) Question Answer Notes Did you have a drink containing alcohol in the p ast year? No Points 0 Interpretation Negative Problems Problem Type SNOMED Code ICD Code Onset Dates Problem Status W/U Status Risk Notes Problem 614918867 Overweight (E66.3) Active confirmed His weight is stable and he remains slightly overweight. We made a plan to lose weight at a rate of one half of a pound per week to a diet restricted in fat calories and sodium combined with regular physical activity. Problem 407317309 Erectile dysfunction, unspecified erectile dysfunction type (N52.9) Active confirmed This problem has been addressed and resolved with medication. Problem 479739791 Statin intolerance (Z78.9) Active confirmed I have offered she is other statins, such as fluvastatin. He was not interested in discussed the medication. He does not wish to take ezetimbe or colestiole. He says he is going to try and reduce his lipids to the previous values by diet and exercise. He is aware of the increased risk of stroke and heart attack and elevated lipid levels. Problem Hyperlipidemia, unspecified hyperlipidemia type (E78.5) Active confirmed Comprehensive blood work including a fasting lipid profile has been ordered. No change in his medication was made today. 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 This is likely due to celebrations during the holidays. We discussed his statin intolerance and hyperglycemia today at length. We reviewed his diet and his nutrition. We made a plan to lose weight at a rate of one half of a pound per week. We reviewed the diabetic diet detail.I have added 5 mg of glipizide to his regimen. Problem [id number] Prostate nodule (N40.2) Active confirmed He is going to see urology to have this evaluated.He declined a rectal examination today. Problem 19433646 Bilateral inguinal hernia with obstruction and without gangrene, recurrence not specified (K40.00) Active confirmed These will be observed as he is asymptomatic. Vital Signs Heart Rate 82 /min 11/30/2024 Temperature 97.5 degrees Fahrenheit 11/30/2024 Blood pressure diastolic 64 mm Hg 11/30/2024 Height 68 in 11/30/2024 Blood pressure systolic 134 mm Hg 11/30/2024 Weight 175 lbs 11/30/2024 BMI 26.61 kg/m2 11/30/2024 Encounters Encounter Location Date Provider Diagnosis Kavon Drake III, MD [address] [place] [address] [place] [phone] 03/02/2024 Kavon Drake Hyperlipidemia, unspecified hyperlipidemia type E78.5 ; Non insulin dependent diabetes mellitus with ophthalmic complication E11.39 and Overweight E66.3 Kavon Drake III, MD [address] [place] [address] [address] [place] [address] 07/27/2024 Kavon Drake Hyperlipidemia, unspecified hyperlipidemia type E78.5 ; Non insulin dependent diabetes mellitus with ophthalmic complication E11.39 ; Statin intolerance Z78.9 ; Bilateral inguinal hernia with obstruction and without gangrene, recurrence not specified K40.00 ; Prostate nodule N40.2 ; Overweight E66.3 and Erectile dysfunction, unspecified erectile dysfunction type N52.9 Kavon Drake III, MD [address] [place] [address] [place] [address] 11/30/2024 Kavon Drake Hyperlipidemia, unspecified hyperlipidemia type E78.5 ; Non insulin dependent diabetes mellitus with ophthalmic complication E11.39 ; Overweight E66.3 ; Prostate nodule N40.2 and Bilateral inguinal hernia with obstruction and without gangrene, recurrence not specified K40.00 Assessments Encounter Date Diagnosis (ICD Code) Assessment Notes Treat ment Notes Treatment Clinical Notes 03/02/2024 Hyperlipidemia, unspecified hyperlipidemia type (ICD-10 - E78.5) He is intolerant of statin medications. His total cholesterol has continued to decrease, now being 269. We have discussed aggressive weight loss, diet, nutrition. We made a plan to lose weight at a rate of one half of a pound per week.He does not wish to take additional medication at this time 03/02/2024 Non insulin dependen t diabetes mellitus with ophthalmic complication (ICD-10 - E11.39) His current fasting glucose is 184. His hemoglobin A1c has increased to 8.0. We have discussed his diabetic diet and exercise level. We made a plan to lose weight at a rate of one half of a pound per week through a diet restricted in fat calories and sodium. 07/27/2024 Hyperlipidemia, unspecified hyperlipidemia type (ICD-10 - E78.5) He is intolerant of statin medications. His total cholesterol has continued to decrease. We have discussed aggressive weight loss, diet, nutrition. We made a plan to lose weight at a rate of one half of a pound per week.He does not wish to take additional medication at this time 07/27/2024 Non insulin dependen t diabetes mellitus with ophthalmic complication (ICD-10 - E11.39) His hemoglobin A1c has decreased from 8.0-7.7. He will continue to lose weight and consume a healthy Mediterranean diet. No change was needed in his medications. 11/30/2024 Hyperlipidemia, unspecified hyperlipidemia type (ICD-10 - E78.5) Comprehensive blood work including a fasting lipid profile has been ordered. No change in his medication was made today. 11/30/2024 Non insulin dependen t diabetes mellitus with ophthalmic complication (ICD-10 - E11.39) His hemoglobin A1c has increased. This is likely due to celebrations during the holidays. We discussed his statin intolerance and hyperglycemia today at length. We reviewed his diet and his nutrition. We made a plan to lose weight at a rate of one half of a pound per week. We reviewed the diabetic diet detail.I have added 5 mg of glipizide to his regimen. 03/02/2024 Overweight (ICD-10 - E66.3) He weighs 178 pounds with a body mass index of 27. We discussed the control of diabetes through diet and exercise. We reviewed his diabetic diet. We reviewed his blood pressure and cholesterol lowering diet. We made a plan to lose weight at a rate of one half of a pound per week. 07/27/2024 Statin intolerance (ICD-10 - Z78.9) I have offered she is other statins, such as fluvastatin. He was not interested in discussed the medication. He does not wish to take ezetimbe or colestiole. He says he is going to try and reduce his lipids to the previous values by diet and exercise. He is aware of the increased risk of stroke and heart attack and elevated lipid levels. 11/30/2024 Overweight (ICD-10 - E66.3) His weight is stable and he remains slightly overweight. We made a plan to lose weight at a rate of one half of a pound per week to a diet restricted in fat calories and sodium combined with regular physical activity. 07/27/2024 Bilateral inguinal hernia with obstruction and without gangrene, recurrence not specified (ICD-10 - K40.00) These will be observed as he is asymptomatic. 11/30/2024 Prostate nodule (ICD-10 - N40.2) He is going to see urology to have this evaluated.He declined a rectal examination today. 07/27/2024 Prostate nodule (ICD-10 - N40.2) He is going to see urology to have this evaluated.He declined a rectal examination today. 11/30/2024 Bilateral inguinal hernia with obstruction and without gangrene, recurrence not specified (ICD-10 - K40.00) These will be observed as he is asymptomatic. 07/27/2024 Overweight (ICD-10 - E66.3) He weighs 178 pounds with a body mass index of 27. We discussed the control of diabetes through diet and exercise. We reviewed his diabetic diet. We reviewed his blood pressure and cholesterol lowering diet. We made a plan to lose weight at a rate of one half of a pound per week. 07/27/2024 Erectile dysfunction , unspecified erectile dysfunction type (ICD-10 - N52.9) This problem has been addressed and resolved with medication. Plan Of Treatment Pending Test Test Name Order Date PROFILE, FASTING (COMPREHENSIVE METABOLI C) 11/30/2024 PROFILE, FASTING (COMPREHENSIVE METABOLI C) 10/21/2023 PROFILE, FASTING (COMPREHENSIVE METABOLI C) 07/27/2024 PROFILE, FASTING (COMPREHENSIVE METABOLI C) 03/02/2024 HEMOGLOBIN A1C (GLYCOHEMOGLOBIN) 024 PSA, TOTAL 10/21/2023 MICROALBUMIN, RANDOM 10/21/2023 MICROALBUMIN, RANDOM 03/02/2024 CBC w DIFF 10/21/2023 CBC w DIFF 03/02/2024 CBC WITH AUTO DIFF 11/30/2024 CBC WITH AUTO DIFF 07/27/2024 COLOGUARD 07/22/2023 Lipid Panel 10/21/2023 Lipid Panel 03/02/2024 Lipid Panel 11/30/2024 Lipid Panel 07/27/2024 Hemoglobin A1c 07/27/2024 Hemoglobin A1c 10/21/2023 Hemoglobin A1c 11/30/2024 Next Appt Details Provider Name:Kavon Verdugorne, 03/01/2025 02:45:00 PM, [address] [place] [address] [address], [place], [address], Provider Name:Kavon Drake, 07/28/2025 10:00:00 AM, [address] [place] [address] [address], [place], [address], Insurance Providers Payer Name Payer Address Payer Phone Subscriber Number Group Number Insured Name Patient Relationship to Insured Coverage Start Date Coverage End Date [employer] [address] [place], [place] [phone] [id number] Norberto Lima Self - patient is the insured MEDICARE NGS [address] [place] [address] [id number] Norberto Lima Self - patient is the insured Medical (General) History Medical History History ICD Code mixed hyperlipidemia adult-onset diabetes mellitus hemorrhoids statin intolerance history of bilateral inguinal hernias, r epaired left inguinal hernia revised 2014 history of prostate nodule from Dr. Sanjiv zaidi's records ED overweight Significant hemorrhoids Patient has a history of ramesh betes, high cholesterol, prostate issues, hernias, and hemorrhoids. His diabetes and cholesterol are not well-controlled, but he is managing them with medication and diet. He has been maintaining his weight and has lost 2 lbs since October. His hemorrhoids have been bothering him recently. Surgical History Surgery Date(Month/Year) appendectomy tonsilectomy bilateral inguinal herniorrhaphies 1970 revision left inguinal herni orrhaphy, Dr. Ferreira, [facility] 2013 No history Hospitalization History Reason Date(Month/Year) No history
--- OUTSIDE RECORDS SUMMARY | 2025-02-25 06:39 | XMS_ITS | Patient Health Record ---
[facility] Organization [facility] krysta Kyler Address [address] [place] [address] Care Team Providers Care Sausage Canner Name Role Phone Kavon Drake MD Primary Care Provider UnavailSherman Rivas Unavailable [phone] Allergies No Known Allergies Reason For Referral No Information Medications Medication SIG (Take, Route, Frequency, Duration) Notes Start Date End Date Status valACYclovir HCl Not -Taking metFORMIN HCl 850 MG 1 tablet with a braulio l Orally Once a day for 30 day(s) Active Immunizations Vaccine Route Administration Date Status Comme nts COVID-19 [employer]/Shawn Unknown 01/17/2021 A dministered Influenza Unknown 07/13/2021 Administered Social History Tobacco Use: Social History Observation Description Date Details (start date - stop date) Never Smoker NA - NA Tobacco Use/Smoking Question Answer Notes Are you a: nonsmoker Alcohol Screen Question Answer Notes Did you have a drink containing alcohol in the p ast year? No Points 0 Interpretation Negative Tobacco use other than smoking: Question Answer Notes Are you an other tobacco user? No Problems Problem Type SNOMED Code ICD Code Onset Dates Problem Status W/U Status Risk Notes Problem Polyneuropathy due to type 2 diabetes mellitus (585627920) Type 2 diabetes mellitus with diabetic polyneuropathy (E11.42) Active confirmed Problem Polyneuropathy due to diabetes mellitus type I (027469459) Type 1 diabetes mellitus with diabetic polyneuropathy (E10.42) Active confirmed Plan Of Treatment Pending Test Test Name Order Date [id number], 1-14 09/14/2021 Insurance Providers Payer Name Payer Address Payer Phone Subscriber Number Group Number Insured Name Patient Relationship to Insured Coverage Start Date Coverage End Date [facility] 65 Medicare Preferred [address] [place] [address] [id number] Norberto Lima Self - patient is the insured Medical (General) History Medical History History ICD Code Diabetic Broken bones Warts Measles Mumps Chicken pox Surgical History Surgery Date(Month/Year)
--- OUTSIDE RECORDS SUMMARY | 2025-02-25 06:39 | XMS_ITS ---
Author Organization Kavon Drake III, MD Address [address] [place] [id number] Care Team Providers Care Funeral Service Manager Name Role Phone Kavon Drake Primary Care Provider [phone] Allergies Allergen (clinical drug ingredient) Drug/Non Drug Allergy documented on EMR Reaction Allergy Type Onset Date Status No Known Drug Allergy Unknown Drug Allergy Active REASON FOR VISIT Annual Exam Medications Medication SIG (Take, Route, Fr equency, Duration) Notes Start Date End Date Status metFORMIN HCl 1000 MG 1 tablet orally twice a day 01/14/2022 Active Hydrocortisone 1 % 1 application Farm Equipment Technician ally Twice a day 07/22/2023 Active Niacin 500 MG 1 tablet with food O rally Once a day Active Fish Oil 1200 MG 1 capsule Orally Once a day Active Social History Tobacco Use: Social History Observation [...] ast year? 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 07/27/2024 Statin intolerance (ICD-10 - Z78.9) I [...] and heart attack and elevated lipid levels. 07/27/2024 Bilateral inguinal hernia with obstruction and without gangrene, recurrence not specified (ICD-10 - K40.00) These will be observed as he is asymptomatic. 07/27/2024 Prostate nodule (ICD-10 - N40.2) He is going to see urology to have this evaluated.He declined a rectal examination today. 07/27/2024 Overweight (ICD-10 - E66.3) He weighs [...] and resolved with medication. Plan Of Treatment Medication Medication Name Sig Start Date Stop Date Notes metFORMIN HCl 1000 MG 1 tablet orally twice a day 01/15/20 Hydrocortisone 1 % 1 application Externally Twice a day Niacin 500 MG 1 tablet with food Orally Once a day Fish Oil 1200 MG 1 capsule Orally Once a day Pending Test Test Name Order Date PROFILE, FASTING (COMPREHENSIVE METABOLI C) 07/27/2024 CBC WITH AUTO DIFF 07/27/2024 Lipid Panel 07/27/2024 Hemoglobin A1c 07/27/2024 Next Appt Details Follow Up: In four months, [place]: Routine blood work Provider Name:Kavon Drake, 03/01/2025 02:45:00 PM, [address] [place] [address] [place], [place], [phone], Provider Name:Kavon Drake, 07/28/2025 10:00:00 AM, [address] [place] [address] [place], [place], [phone], Progress Notes * HARINDERNorberto SILVADOB:1950 (74 yo M)Acc No.[id number]:07/27/2024 Progress Notes Patient:?Norebrto PIZANO Provider:?Kavon Drake MD :1950???Age:74 Y???Sex:Male Papa e:07/27/2024 [facility] [id number] Subjective: * Chief Complaints: * ???Annual Exam * HPI: ???Depression Screening:?PHQ-9?Little interest or pleasure in doing things?Not at all ?Feeling down, depressed, or hopeless?Not at all ?Trouble falling or staying asleep, or sleeping too much?Not at all ?Feeling tired or having little energy?Not at all ?Poor appetite or overeating?Not at all ?Feeling bad about yourself or that you are a failure, or have let yourself or your family down?Not at all ?Trouble concentrating on things, such as reading the newspaper or watching television?Not at all ?Moving or speaking so slowly that other people could have noticed; or the opposite, being so fidgety or restless that you have been moving around a lot more than usual?Not at all ?Thoughts that you would be better off or of hurting yourself in some way?Not at all ?Total Score?0 ???COVID-19 Screening:?Questions?Have you experienced fever, chills, cough, sore throat, shortness of breath, difficulty breathing, muscle aches, loss of taste or smell??No ?Have you been exposed to the virus within the last 10 days??No ?Have you travelled internationally in the last 10 days??No ?Have you been exposed to COVID-19 in the past??No ???SDOH Questions:?SDOH Questions?In the past year have you been worried about losing your housing??No ?In the past year have you or any family members you live with been unable to get any of the following when it was really needed? Check all that apply:?None ???Fall Risk Screening:?Fall History?Have you had any falls with injury in the past year??No ?Have you had two or more falls in the past year??No ?Fall Risk Assessment:?No falls in the past year ???:? The patient, Norberto, is a 74-year-old male who presented for his annual exam. He has a history of diabetes, which is currently not well-controlled with a recent Hemoglobin A1C of 7.7, and a fasting blood sugar of 171. He also has a history of high cholesterol, which he is managing with niacin and fish oil. His cholesterol level has improved from 269 in October to 249 currently. He has a history of prostate issues, with one episode of nocturia per night, but his PSA is normal at 2.1. He also has a history of hernias, which are not currently bothering him. He has been trying to maintain his weight and has lost 2 lbs since October. He also has hemorrhoids, which have been bothering him recently. He has been managing his bowel movements with prune juice. Blood Sugar Level is 171. * ROS:?General/Constitutional:?pain?only normal aches and pains.?Chills?denies.?Fatigue?admits.?Fever?denies.?ENT:?Decreased hearing?mild.?Respiratory:?Cough?denies.?Cardiovascular:?Chest pain with exertion?denies.?Dyspnea on exertion?denies.?Shortness of breath?denies.?Gastrointestinal:?Constipation?occasional.?Decreased appetite?denies.?Diarrhea?denies.?Heartburn?denies.?Nausea?denies.?Rectal bleeding?denies.?Vomiting?denies.?Hematology:?bruising?denies.?petechiae?denies.?Swollen glands?none have been noted.?Genitourinary:?Frequent urination?once a night.?Musculoskeletal:?Muscle aches?denies.?Painful joints?denies.?Sciatica?denies.?Weakness?denies.?Skin:?Itching?denies.?Rash?denies.?Skin lesion(s)?denies.?Neurologic:?Difficulty speaking?denies.?Dizziness?denies.?Headache?denies.?Low back pain?denies.?Psychiatric:?Depressed mood?denies.? * Medical History:? * Surgical History:?appendecto my tonsilectomy bilateral inguinal herniorrhaphies 1970revision left inguinal herniorrhaphy, Dr. Ferreira, [facility] 2014No history * Hospitalization/Major Diagno stic Procedure:?No history * Family History:?Father: dece ased, Abdominal aneurysm, coronary artery disease, diagnosed with CVD.?Mother: alive 99 yrs, History fracture.?2 daughter(s) - healthy. .? He has 2 daughters who are alive and well. His paternal grandfather had an abdominal aneurysm. * Social History:?Tobacco Use:?Tobacco Use/Smoking?Patient is a?nonsmoker ?Additional Findings: Tobacco Non-User?Aggressive non-smoker ?Tobacco Control (Standard)?Tobacco use:?Nonsmoker ?Additional Findings: Tobacco non-user?Aggressive nonsmoker ???Drugs/Alcohol:?Drugs?Have you used drugs other than those for medical reasons in the past 12 months??No ???Miscellaneous:?Domestic violence: no, none. ???Drug/Alcohol:?AUDIT-C (Standard)?Did you have a drink containing alcohol in the past year??No ?Points?0 ?Interpretation?Negative ???He works for, [employer], a [email or web address]. He is to [place]. He has 2 daughters who are healthy and well. Patient works in the [employer] industry. He has been trying to maintain his weight and has lost 2 lbs since October. He manages his bowel movements with prune juice. * Medications:?TakingFish Oil 1200 MG Capsule 1 capsule Orally Once a day Niacin 500 MG Tablet Extended Release 1 tablet with food Orally Once a day Hydrocortisone 1 % Cream 1 application Externally Twice a day metFORMIN HCl 1000 MG Tablet 1 tablet orally twice a day Medication List reviewed and reconciled with the patientTaking Fish Oil 1200 MG Capsule 1 capsule Orally Once a day Taking Niacin 500 MG Tablet Extended Release 1 tablet with food Orally Once a day Taking Hydrocortisone 1 % Cream 1 application Externally Twice a day Taking metFORMIN HCl 1000 MG Tablet 1 tablet orally twice a day Medication List reviewed and reconciled with the patient * Allergies:?No Known Drug All ergyno[Allergies Verified] Objective: * Vitals:?Ht: 68, Wt:177, BMI: 26.91, BP:124/69, HR:95, Temp:98.4, Wt-k.29. * ???Past Orders: Lab:Complete Blood Count Aut o Diff * Collection Date 07/24/2024 03/01/2024 10/17/2023 Collection Time 08:03 AM 06:21 AM 08:12 AM Order Date 07/24/2024 03/01/2024 10/17/2023 White Blood Count 7.7 (Ref Range: 4.8-10.8 X10*3/uL) 6.8 (Ref Range: 4.8-10.8 X10*3/uL) 6.6 (Ref Range: 4.8-10.8 X10*3/uL) Red Blood Count 4.58?L (Ref Range: 4.60-5.80 X10*6/uL) 4.46?L (Ref Range: 4.60-5.80 X10*6/uL) 4.76 (Ref Range: 4.60-5.80 X10*6/uL) Hemoglobin 13.7?L (Ref Range: 14.0-18.0 g/dl) 13.7?L (Ref Range: 14.0-18.0 g/dl) 14.3 (Ref Range: 14.0-18.0 g/dl) Hematocrit 41.6?L (Ref Range: 42.0-52.0 %) 40.7?L (Ref Range: 42.0-52.0 %) 43.0 (Ref Range: 42.0-52.0 %) Mean Corpuscular Volume 90.8 (Ref Range: 80.0-98.0 fL) 91.3 (Ref Range: 80.0-98.0 fL) 90.3 (Ref Range: 80.0-98.0 fL) Mean Corpuscular Hemoglobin 29.9 (Ref Range: 27.0-33.0 pg) 30.7 (Ref Range: 27.0-33.0 pg) 30.0 (Ref Range: 27.0-33.0 pg) Mean Corpuscular HGB Conc 32.9 (Ref Range: 31.0-36.0 g/dl) 33.7 (Ref Range: 31.0-36.0 g/dl) 33.3 (Ref Range: 31.0-36.0 g/dl) Red Cell Distribution Width 12.6 (Ref Range: 11.0-16.0 %) 12.8 (Ref Range: 11.0-16.0 %) 12.3 (Ref Range: 11.0-16.0 %) Platelet Count 259 (Ref Range: 160-400 X10*3/uL) 245 (Ref Range: 160-400 X10*3/uL) 205 (Ref Range: 160-400 X10*3/uL) Mean Platelet Volume 9.1?L (Ref Range: 9.4-12.4 fL) 9.8 (Ref Range: 9.4-12.4 fL) 9.0?L (Ref Range: 9.4-12.4 fL) Neutrophils Percent Auto 58.8 (Ref Range: 45-73 %) 56.2 (Ref Range: 45-73 %) 53.6 (Ref Range: 45-73 %) Imm Gran Pct Auto 0.3 (Ref Range: 0.0-0.4 %) 0.1 (Ref Range: 0.0-0.4 %) 0.5?H (Ref Range: 0.0-0.4 %) Lymphocytes Percent Auto 29.5 (Ref Range: 20-40 %) 32.4 (Ref Range: 20-40 %) 34.8 (Ref Range: 20-40 %) Monocytes Percent Auto 6.0 (Ref Range: 2-11 %) 5.7 (Ref Range: 2-11 %) 6.5 (Ref Range: 2-11 %) Eosinophils Percent Auto 4.8?H (Ref Range: 0-4 %) 5.0?H (Ref Range: 0-4 %) 4.0 (Ref Range: 0-4 %) Basophils Percent Auto 0.6 (Ref Range: 0-2 %) 0.6 (Ref Range: 0-2 %) 0.6 (Ref Range: 0-2 %) NRBC Pct Auto 0.0 (Ref Range: 0.0-0.2 /100WBC) 0.0 (Ref Range: 0.0-0.2 /100WBC) 0.0 (Ref Range: 0.0-0.2 /100WBC) Neutrophils Absolute Auto 4.5 (Ref Range: 2.0-8.3 x10*3/uL) 3.8 (Ref Range: 2.0-8.3 x10*3/uL) 3.5 (Ref Range: 2.0-8.3 x10*3/uL) Imm Gran Abs Auto 0.02 (Ref Range: 0.00-0.03 X10*3/uL) 0.01 (Ref Range: 0.00-0.03 X10*3/uL) 0.03 (Ref Range: 0.00-0.03 X10*3/uL) Lymphocytes Absolute Auto 2.3 (Ref Range: 1.2-4.9 X10*3/uL) 2.2 (Ref Range: 1.2-4.9 X10*3/uL) 2.3 (Ref Range: 1.2-4.9 X10*3/uL) Monocytes Absolute Auto 0.5 (Ref Range: 0.1-1.2 X10*3/uL) 0.4 (Ref Range: 0.1-1.2 X10*3/uL) 0.4 (Ref Range: 0.1-1.2 X10*3/uL) Eosinophils Absolute Auto 0.4 (Ref Range: 0.0-0.4 X10*3/uL) 0.3 (Ref Range: 0.0-0.4 X10*3/uL) 0.3 (Ref Range: 0.0-0.4 X10*3/uL) Basophils Absolute Auto 0.1 (Ref Range: 0.0-0.2 X10*3/uL) 0.0 (Ref Range: 0.0-0.2 X10*3/uL) 0.0 (Ref Range: 0.0-0.2 X10*3/uL) NRBC Abs Auto 0.000 (Ref Range: 0.0-0.012 X10*3/uL) 0.000 (Ref Range: 0.0-0.012 X10*3/uL) 0.000 (Ref Range: 0.0-0.012 X10*3/uL) * Lab:Hemoglobin A1c * Collection Date 07/24/2024 03/01/2024 10/17/2023 Collection Time 08:03 AM 06:21 AM 08:12 AM Order Date 07/24/2024 03/01/2024 10/17/2023 Hemoglobin A1c % 7.7?H (Ref Range: <6.0 %) 8.0?H (Ref Range: <6.0 %) 7.9?H (Ref Range: <6.0 %) Estimated Average Glucose 174 (Ref Range: mg/dL) 183 (Ref Range: mg/dL) 180 (Ref Range: mg/dL) * Lab:Microalbumin, Random * Collection Date 07/24/2024 03/01/2024 04/14/2023 Collection Time 07:59 AM 06:20 AM 06:52 AM Order Date 07/24/2024 03/01/2024 04/14/2023 Creatinine Urine 79.45 (Ref Range: mg/dL) 109.67 (Ref Range: mg/dL) 99.27 (Ref Range: mg/dL) Microalbumin Urine < 5.0 (Ref Range: mg/L) 6.0 (Ref Range: mg/L) < 5.0 (Ref Range: mg/L) Microalbum Creatinine Ratio Ur TNP (Ref Range: <30 ug/mg cr) 5.4 (Ref Range: <30 ug/mg cr) TNP (Ref Range: ug/mg cr) * Lab:Lipid Panel * Collection Date 07/24/2024 03/01/2024 10/17/2023 Collection Time 08:03 AM 06:21 AM 08:12 AM Order Date 07/24/2024 03/01/2024 10/17/2023 Triglycerides 176?H (Ref Range: <150 mg/dL) 158?H (Ref Range: <150 mg/dL) 139 (Ref Range: <150 mg/dL) Cholesterol 249?H (Ref Range: <200 mg/dL) 257?H (Ref Range: <200 mg/dL) 269?H (Ref Range: <200 mg/dL) LDL Cholesterol Calculated 168?H (Ref Range: <100 mg/dL) 179?H (Ref Range: <100 mg/dL) 190?H (Ref Range: <100 mg/dL) HDL Cholesterol 46 (Ref Range: >40 mg/dL) 47 (Ref Range: >40 mg/dL) 52 (Ref Range: >40 mg/dL) * Lab:Comprehensive [place]. Alejandroe l Fast * Collection Date 07/24/2024 03/01/2024 10/17/2023 Collection Time 08:03 AM 06:21 AM 08:12 AM Order Date 07/24/2024 03/01/2024 10/17/2023 Sodium 139 (Ref Range: 135-145 mmol/L) 140 (Ref Range: 135-145 mmol/L) 139 (Ref Range: 135-145 mmol/L) Bilirubin Total 0.5 (Ref Range: 0.0-1.0 mg/dL) 0.3 (Ref Range: 0.0-1.0 mg/dL) 0.6 (Ref Range: 0.0-1.0 mg/dL) Aspartate Amino Transferase 20 (Ref Range: 5-37 U/L) 20 (Ref Range: 5-37 U/L) 20 (Ref Range: 5-37 U/L) Alanine Aminotransferase 25 (Ref Range: 0-40 U/L) 23 (Ref Range: 0-40 U/L) 24 (Ref Range: 0-40 U/L) Total Protein 7.1 (Ref Range: 6.5-8.0 g/dL) 6.9 (Ref Range: 6.5-8.0 g/dL) 7.0 (Ref Range: 6.5-8.0 g/dL) Albumin Level 4.2 (Ref Range: 3.5-5.0 g/dL) 4.2 (Ref Range: 3.5-5.0 g/dL) 4.3 (Ref Range: 3.5-5.0 g/dL) Alkaline Phosphatase 102 (Ref Range: 39-117 U/L) 82 (Ref Range: 39-117 U/L) 76 (Ref Range: 39-117 U/L) Potassium 4.5 (Ref Range: 3.3-5.1 mmol/L) 4.5 (Ref Range: 3.3-5.1 mmol/L) 4.8 (Ref Range: 3.3-5.1 mmol/L) Chloride 102 (Ref Range: 96-108 mmol/L) 102 (Ref Range: 96-108 mmol/L) 101 (Ref Range: 96-108 mmol/L) Carbon Dioxide 28 (Ref Range: 22-29 mmol/L) 26 (Ref Range: 22-29 mmol/L) 29 (Ref Range: 22-29 mmol/L) Anion Gap 14 (Ref Range: 12-20) 17 (Ref Range: 12-20) 14 (Ref Range: 12-20) Blood Urea Nitrogen 16 (Ref Range: 9-16 mg/dL) 24?H (Ref Range: 9-16 mg/dL) 18?H (Ref Range: 9-16 mg/dL) Creatinine 1.05 (Ref Range: 0.5-1.4 mg/dL) 1.20 (Ref Range: 0.5-1.4 mg/dL) 1.10 (Ref Range: 0.5-1.4 mg/dL) Estimated Glomerular Filt Rate > 60 60 > 60 Glucose Fasting 171?H (Ref Range: 60-99 mg/dL) 184?H (Ref Range: 60-99 mg/dL) 184?H (Ref Range: 60-99 mg/dL) Calcium 9.9 (Ref Range: 8.4-10.2 mg/dL) 9.5 (Ref Range: 8.4-10.2 mg/dL) 9.6 (Ref Range: 8.4-10.2 mg/dL) * Examination: ???General Examination: ?GENERAL APPEARANCE:?pleasant, well nourished, well developed, in no acute distress, calm and relaxed, overweight, man.?HEAD:?atraumatic, normocephalic.?EYES:?eomi, perrla, anicteric, conjugate.?EARS:?normal.?NOSE:?septum intact.?ORAL CAVITY:?normal, unremarkable.?NECK/THYROID:?no jugular venous distention, no carotid bruit, thyroid normal.?LYMPH NODES:?no enlarged lymph nodes,spleen normal.?SKIN:?no suspicious lesions, anicteric.?HEART:?no clicks, gallops, murmurs, or rubs, regular rhythm, S1, S2 normal, no s3, or vascular bruits.?LUNGS:?clear to auscultation .?BREASTS:??no masses palpable bilaterally.?ABDOMEN:?bowel sounds normal, no ascites, no organomegaly, no mass, overweight.?RECTAL EXAM:?He declined to undergo a digital rectal examination saying that his hemorrhoids were bothering him..?MUSCULOSKELETAL:?extremities unremarkable, no clubbing, cyanosis or edema.?PERIPHERAL PULSES:?normal.?NEUROLOGIC:?alert and oriented, cranial nerves 2-12 grossly intact, deep tendon reflexes 2+ symmetrical, motor strength normal upper and lower extremities, sensory exam intact.?PSYCH:?alert, oriented.? : ???Ears:No wax, eardrums look normal. Eyes: Completely normal. Oral Cavity: Nothing wrong. Pulse: Regular. Hands: No tendon contractors. Heart: Regular rhythm with no premature heartbeats, no heart murmur. Breathing: Normal. Skin: Fine. Legs: No cyst in the back of knee, no knee of fusion, no peripheral edema. ??? 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 He will continue to lose weight and consume a healthy Mediterranean diet.? No change was needed in his medications.???2.?Hyperlipidemia, unspecified hyperlipidemia type - E78.5???Notes :He is intolerant of statin medications. His total cholesterol has continued to decrease. We have discussed aggressive weight loss, diet, nutrition. We made a plan to lose weight at a rate of one half of a pound per week.He does not wish to take additional medication at this time???3.?Statin intolerance - Z78.9???Notes :I have offered she is other statins, such as fluvastatin. He was not interested in discussed the medication. He does not wish to take ezetimbe or colestiole. He says he is going to try and reduce his lipids to the previous values by diet and exercise. He is aware of the increased risk of stroke and heart attack and elevated lipid levels.???4.?Bilateral inguinal hernia with obstruction and without gangrene, recurrence not specified - K40.00???Notes :These will be observed as he is asymptomatic.???5.?Prostate nodule - N40.2???Notes :He is going to see urology to have this evaluated.He declined a rectal examination today.???6.?Overweight - E66.3???Notes :He weighs 178 pounds with a body mass index of 27. We discussed the control of diabetes through diet and exercise. We reviewed his diabetic diet. We reviewed his blood pressure and cholesterol lowering diet. We made a plan to lose weight at a rate of one half of a pound per week.???7.?Erectile dysfunction, unspecified erectile dysfunction type - N52.9???Notes :This problem has been addressed and resolved with medication.??? Plan: * Treatment: 2.?Hyperlipidemia, unspecifi ed hyperlipidemia type? Continue Fish Oil Capsule, 1200 MG, 1 capsule, Orally, Once a day;?Continue Niacin Tablet Extended Release, 500 MG, 1 tablet with food, Orally, Once a day;?Continue Hydrocortisone Cream, 1 %, 1 application, Externally, Twice a day;?Continue metFORMIN HCl Tablet, 1000 MG, 1 tablet, orally, twice a day.?? * Procedure Codes:? * Preventive Medicine:? ??Counseling:?Care goal follow-up plan:?Counseling for abnormal BMI given?Yes ?Above Normal BMI Follow-up?Dietary management education, guidance, and counseling, Dietary needs education, Exercise promotion: strength training, Exercise promotion: stretching, Feeding regime, Giving encouragement to exercise, Lifestyle education regarding diet, Nutrition / feeding management, Nutrition therapy, Prescribed activity/exercise education, Prescribed diet education, Prescribed dietary intake, Special diet education, Weight monitoring , Intervention, Order not done: Medical or Other reason not done ??DM Care Plan:?Patient Lifestyle Goals?Patient wants to be able to manage diabetes without too much effort.?Treatment Goals?HbA1C < 7.0, Blood Sugars less than < 115.?Barriers?no barriers.?Self-Managment Goals?Work on weight loss, with a goal of losing 1 lb per week.? * Follow Up:?In four months ([place]: Routine blood work) * Images: * Sign off status: Completed true * Provider:?Kavon Drake MD Date:?07/13 Generated for Shannon foreman/Jennifer/eTransmitting on:?02/25/2025 06:39 AM EDT History and Physical Notes * HPI (History of Present Illness) Category Sub-Category Detail Notes Depression Screening PHQ-9 Little inte rest or pleasure in doing things: Not at all Feeling down, depressed, or hopeless: No t at all Trouble falling or staying asleep, or sl eeping too much: Not at all Feeling tired or having little energy: N ot at all Poor appetite or overeating: Not at all Feeling bad about yourself o r that you are a failure, or have let yourself or your family down: Not at all Trouble concentrating on thi ngs, such as reading the newspaper or watching television: Not at all Moving or speaking so slowly that other people could have noticed; or the opposite, being so fidgety or restless that you have been moving around a lot more than usual: Not at all Thoughts that you would be [place] off or of hurting yourself in some way: Not at all Total Score: 0 Fall Risk Screening Fall History Have you had any falls with injury in the past year?: No Have you had two or more falls in the ?: No Fall Risk Assessment:: No falls in the COVID-19 Screening Questions Have you had any new onset fever, chills, cough, congestion, sore throat, shortness of breath, muscle aches?: No Have you been exposed to the virus withi n the last 10 days?: No Have you travelled internationally in last 10 days?: No Have you been exposed to COVID-19 in the past?: No SDOH Questions SDOH Questions In the past year have you been worried about losing your housing?: No In the past year have you or any family members you live with been unable to get any of the following when it was really needed? Check all that apply:: None Examination Category Sub-Category Detail Notes General Examination GENERAL APPEARANCE: pleasant , well nourished, well developed, in no acute distress, calm and relaxed, overweight, man HEAD: atraumatic, normocep halic EYES: eomi, perrla, anicte desean, conjugate EARS: normal NOSE: septum intact NECK/THYROID: no jugular venous di stention, no carotid bruit, thyroid normal HEART: no clicks, gallops, murmurs, or rubs, regular rhythm, S1, S2 normal, no s3, or vascular bruits LUNGS: clear to auscultatio n ABDOMEN: bowel sounds normal, no ascites, no organomegaly, no mass, overweight NEUROLOGIC: alert and oriented, cranial nerves 2-12 grossly intact, deep tendon reflexes 2+ symmetrical, motor strength normal upper and lower extremities, sensory exam intact SKIN: no suspicious lesion s, anicteric PERIPHERAL PULSES: normal BREASTS: no masses palpable b ilaterally MUSCULOSKELETAL: extremities unremark able, no clubbing, cyanosis or edema LYMPH NODES: no enlarged lymph no kailey,spleen normal RECTAL EXAM: He declined to under go a digital rectal examination saying that his hemorrhoids were bothering him. PSYCH: alert, oriented ORAL CAVITY: normal, unremarkable
--- OUTSIDE RECORDS SUMMARY | 2025-02-25 06:39 | XMS_ITS ---
Author Organization Kavon Drake III, MD Address [address] [place] [address] Care Team Providers Care Steel Checker Name Role Phone Kavon Drake Primary Care Provider [phone] REASON FOR VISIT follow up Social History Sex Assigned At : Social History Observation Description Sex Assigned At Male Encounters Encounter Location Date Provider Diagnosis Kavon Drake III, MD [address] [place] [address] [place] [address] 06/02/2024 Kavon Drake Plan Of Treatment Next Appt Details Provider Name:Kavon Drake, 03/01/2025 02:45:00 PM, [address] [place] [address] [place], [address], Provider Name:Kavon Drake, 07/28/2025 10:00:00 AM, [address] [place] [address] [place], [address], Progress Notes * Norberto LIMADOB:1950 (75 yo M)Acc No.[id number]:06/02/2024 Progress Notes Patient:?Norberto LIMA Provider:?Kavon Drake MD :1950???Age:74 Y???Sex:Male Papa e:06/02/2024 [id number] Subjective: * Chief Complaints: * ???1. Follow up. * Medical History:? Objective: * Vitals:? Assessment: Plan: * Treatment: * Images: * The named appointment provid er may or may not be the originator of this progress note, and it is not deemed complete until electronically signed by the appointment provider. Sign off status: Pending * Provider:?Kavon Drake MD Date:?05/14 Generated for Shannon foreman/Jennifer/Rodri on:?02/25/2025 06:38 AM EDT
[2025-02-25 06:50] LABS: MANUAL DIFF FLAG NO
[2025-02-25 07:43] LABS: Basophils Percent Auto 0.3 % (0-2); Eosinophils Absolute Auto 0.3 X10*3/uL (0.0-0.4); Eosinophils Percent Auto 3.4 % (0-4); Hematocrit 39.2 % (42.0-52.0); Hemoglobin 12.6 g/dl (14.0-18.0); Imm Gran Abs Auto 0.04 X10*3/uL (0.00-0.03); Imm Gran Pct Auto 0.4 % (0.0-0.4); Lymphocytes Absolute Auto 2.4 X10*3/uL (1.2-4.9); Lymphocytes Percent Auto 26.2 % (20-40); Mean Corpuscular HGB Conc 32.1 g/dl (31.0-36.0); Mean Corpuscular Hemoglobin 27.6 pg (27.0-33.0); Mean Platelet Volume 9.1 fL (9.4-12.4); Monocytes Absolute Auto 0.6 X10*3/uL (0.1-1.2); Monocytes Percent Auto 6.7 % (2-11); Neutrophils Absolute Auto 5.8 x10*3/uL (2.0-8.3); Platelet Count 293 X10*3/uL (160-400); Red Blood Count 4.56 X10*6/uL (4.60-5.80); Red Cell Distribution Width 14.4 % (11.0-16.0); White Blood Count 9.2 X10*3/uL (4.8-10.8)
[2025-02-25 07:45] LABS: Estimated Average Glucose 166 mg/dL; Hemoglobin A1c % 7.4 % (<6.0); Total Hemoglobin (HGBA1C) 3328.6712 umol/L
[2025-02-25 07:54] LABS: Alanine Aminotransferase 23 U/L (0-40); Albumin Level 4.1 g/dL (3.5-5.0); Alkaline Phosphatase 111 U/L (39-117); Anion Gap 13 (12-20); Aspartate Amino Transferase 19 U/L (5-37); Bilirubin Total 0.4 mg/dL (0.0-1.0); Blood Urea Nitrogen 16 mg/dL (9-16); Calcium 9.7 mg/dL (8.4-10.2); Carbon Dioxide 28 mmol/L (22-29); Chloride 101 mmol/L (96-108); Cholesterol 231 mg/dL (<200); Estimated Glomerular Filt Rate > 60; Glucose Fasting 157 mg/dL (60-99); HDL Cholesterol 43 mg/dL (>40); LDL Cholesterol Calculated 150 mg/dL (<100); Potassium 4.4 mmol/L (3.3-5.1); Sodium 138 mmol/L (135-145); Total Protein 7.4 g/dL (6.5-8.0); Triglycerides 191 mg/dL (<150)
== END 2025-02-25 06:37 | disposition home or self-care (01) ==
LOC: HO.LAB 06:36
PROVIDERS: PCP Internal Medicine Medical Oncology; Visit Provider Internal Medicine Medical Oncology
DX: E78.5 Hyperlipidemia, unspecified (principal); E11.39 Type 2 diabetes mellitus with other diabetic ophthalmic complication; E66.3 Overweight
CPT/HCPCS: 36415; 80053; 80061; 83036; 85025

== ENCOUNTER 2025-05-25 06:37 | Outpatient (REF) | payer MEDICARE, SELFPAY ==
--- OUTSIDE RECORDS SUMMARY | 2025-05-25 06:40 | XMS_ITS | Patient Health Record ---
[facility] Address [address] [place] [address] Care Team Providers Care Business Law Teacher Name Role Phone Kavon Drake MD Primary Care Provider Sherman Dhaliwal Unavailable [phone] Allergies No Known Allergies Reason For Referral No Information Medications Medication SIG (Take, Route, Frequency, Duration) Notes Start Date End Date Status valACYclovir HCl Not -Taking metFORMIN HCl 850 MG 1 tablet with a braulio l Orally Once a day; Duration: 30 day(s) Active Immunizations Vaccine Route Administration Date Status Comme nts Influenza Unknown 07/13/2021 Administered COVID-19 [employer]/Shawn Unknown 01/17/2021 A dministered Social History Tobacco Use: Social History Observation [...] Problem Status W/U Status Risk Notes Problem Type 2 diabetes mellitus with diabetic polyneuropathy (E11.42) Active confirmed Problem Polyneuropathy due to diabetes mellitus type I (216759657) Type 1 diabetes mellitus with diabetic polyneuropathy (E10.42) Active confirmed Plan Of Treatment Pending Test Test Name Order Date [id number] , 1-14 09/14/2021 Insurance Providers Payer Name Payer Address Payer Phone Subscriber Number Group Number Insured Name Patient Relationship to Insured Coverage Start Date Coverage End Date [facility] Preferred [address] [place] [address] [id number] Norberto Lima Self - patient is the insured Medical (General) History Medical History History ICD Code Diabetic Broken bones Warts Measles Mumps Chicken pox Surgical History Surgery Date(Month/Year)
[2025-05-25 06:51] LABS: MANUAL DIFF FLAG NO
[2025-05-25 07:48] LABS: Hemoglobin A1C 191.1964 umol/L; Total Hemoglobin (HGBA1C) 3478.9070 umol/L
[2025-05-25 07:50] LABS: Hematocrit 41.1 % (42.0-52.0); Hemoglobin 13.2 g/dl (14.0-18.0); Imm Gran Abs Auto 0.02 X10*3/uL (0.00-0.03); Imm Gran Pct Auto 0.2 % (0.0-0.4); Lymphocytes Absolute Auto 2.5 X10*3/uL (1.2-4.9); Mean Corpuscular HGB Conc 32.1 g/dl (31.0-36.0); Mean Corpuscular Hemoglobin 27.6 pg (27.0-33.0); Mean Corpuscular Volume 86.0 fL (80.0-98.0); NRBC Abs Auto 0.000 X10*3/uL (0.0-0.012); NRBC Pct Auto 0.0 /100WBC (0.0-0.2); Platelet Count 321 X10*3/uL (160-400); Red Blood Count 4.78 X10*6/uL (4.60-5.80); White Blood Count 8.5 X10*3/uL (4.8-10.8)
[2025-05-25 08:12] LABS: Alanine Aminotransferase 18 U/L (0-40); Albumin Level 4.6 g/dL (3.5-5.0); Alkaline Phosphatase 117 U/L (39-117); Anion Gap 17 (12-20); Aspartate Amino Transferase 25 U/L (5-37); Blood Urea Nitrogen 20 mg/dL (9-16); Calcium 9.8 mg/dL (8.4-10.2); Carbon Dioxide 28 mmol/L (22-29); Chloride 100 mmol/L (96-108); Cholesterol 244 mg/dL (<200); Estimated Glomerular Filt Rate > 60; HDL Cholesterol 45 mg/dL (>40); Potassium 4.6 mmol/L (3.3-5.1); Sodium 140 mmol/L (135-145); Total Protein 7.7 g/dL (6.5-8.0); Triglycerides 146 mg/dL (<150)
[2025-05-25 08:28] LABS: Prostate Specific Antigen 3.52 ng/mL (<0.05-4.0)
== END 2025-05-25 06:38 | disposition home or self-care (01) ==
LOC: HO.LAB 06:37
PROVIDERS: PCP Internal Medicine Medical Oncology; Visit Provider Internal Medicine Medical Oncology
DX: E11.39 Type 2 diabetes mellitus with other diabetic ophthalmic complication (principal); E78.5 Hyperlipidemia, unspecified; N52.9 Male erectile dysfunction, unspecified; E66.3 Overweight; Z12.5 Encounter for screening for malignant neoplasm of prostate
CPT/HCPCS: 36415; 80053; 80061; 83036; 84153; 85025